=== PATIENT | female | born 1985 | race Caucasian/White ===

== ENCOUNTER 2016-12-17 20:55 | Emergency (ER) | payer SELFPAY ==
[~2016-12-17] VITALS: Ht 175.3 cm; Wt 79.8 kg
--- OUTSIDE RECORDS SUMMARY | 2016-12-17 21:01 | XMS REPORT | Continuity of Care Document ---
Author Author [facility] Organization [facility] Address Unknown Phone Unavailable Allergies Medications Problems Date Dx Coded Attending Type Code Diagnosis Diagnosed By 10/14/2016 WORKING Z76.0 Encounter for issue of repeat prescription Procedures Results Encounters ACCT No. Visit Date/Time Discharge Status Pt. Type Provider Facility Loc./Unit Complaint [id number] 10/14/2016 10:42:00 10/14/2016 12:22:00 [facility] FED
[2016-12-17 21:58] VITALS: BP 154/82
[2016-12-17] MEDS ORDERED: GABA800T2 (22:00)
== END 2016-12-17 22:44 | disposition left against medical advice (07) ==
LOC: ER 20:58
DX: J11.1 Influenza due to unidentified influenza virus with other respiratory manifestations (principal); R09.89 Other specified symptoms and signs involving the circulatory and respiratory systems; R19.7 Diarrhea, unspecified
CPT/HCPCS: 99281

== ENCOUNTER → 2017-02-07 | Outpatient (CLI) | payer SELFPAY ==
[~2017-02-07] MED LIST: GABA800T2
== END ==
LOC: LAB 14:47
PROVIDERS: ATTEND Nurse Practitioner Family
DX: G89.29 Other chronic pain (principal); F11.20 Opioid dependence, uncomplicated; Z86.19 Personal history of other infectious and parasitic diseases

== ENCOUNTER → 2017-03-24 | Outpatient (CLI) | payer SELFPAY ==
[2017-03-24 13:53] LABS: HEMOGLOBIN 13.2 G/DL (11.5-16.0); MEAN PLATELET VOLUME 10.3 FL (7.4-10.4); RED BLOOD COUNT 4.05 10^6/uL (4.35-5.85); RED CELL DISTRIBUTION WIDTH 12.8 % (10.0-14.5); WHITE BLOOD COUNT 5.9 10^3/uL (4.3-11.0)
== END ==
LOC: LAB 13:19
PROVIDERS: ATTEND Pediatrics
DX: F11.20 Opioid dependence, uncomplicated (principal)
CPT/HCPCS: 36415; 84443; 85027